=== PATIENT | female | born 1995 | race Caucasian/White ===

== ENCOUNTER 2017-06-01 20:13 | Emergency (ER) | payer BC ==
[2017-06-01 20:41] VITALS: BP 113/59
--- NOTE | 2017-06-01 22:24 | UC ---
Rachel Farooq Alfonso, scribed for Bi Benitez MD on 06/01/17 at 2145 . General HPI - HPI Summary HPI Summary: This patient is a 21 year old F presenting to [facility] accompanied by mother with a chief complaint of tiredness since a month ago. The CC is described as aches and pressure. The symptoms are worse since yesterday. Pt rates the pain 5/10 in severity. Symptoms aggravated and alleviated by nothing. Pt reports racing palpitations (all day yesterday), decreased urinary frequency, loss of appetite , fatigue, difficulty focusing, disorientation, and lower back pain. Pt denies fever, chills, CP, melena, diarrhea, and vaginal discharge. LNMP began 2 days ago. Pt is on IUD. Pt denies abdominal PSHx. Patient medications reviewed this visit. - History of Current Complaint Chief Complaint: UCGU Stated Complaint: FEELING TIRED Time Seen by Provider: 06/01/17 21:34 Hx Obtained From: Patient Onset/Duration: Sudden Onset, Lasting Weeks - one month, Worse Since - yesterday Timing: Constant Onset Severity: Moderate Current Severity: Moderate Pain Intensity: 5 - /10 Character: aches and pressure Aggravating: Nothing Alleviating: Nothing Associated Signs & Symptoms: Positive: Other - Positive racing palpitations ( all day yesterday), decreased urinary frequency, loss of appetite, fatigue, difficulty focusing, disorientation, and lower back pain; negative fever, chills , CP, melena, diarrhea, and vaginal discharge. - Allergy/Home Medications Allergies/Adverse Reactions: Allergies Allergy/AdvReac Type Severity Reaction Status Date / Time Dust Mite Extract Allergy Intermediate Itching Verified 08/14/15 18:39 Kiwi Extract Allergy Intermediate Hives Verified 08/14/15 18:39 Sesame Oil Allergy Intermediate Hives Verified 08/14/15 18:39 Home Medications: Home Medications Acetaminophen [Eq Acetaminophen] 650 mg PO 06/01/17 [History] PMH/Surg Hx/FS Hx/Imm Hx - Surgical History Surgical History: None - Family History Known Family History: Positive: Cardiac Disease, Hypertension, Diabetes, Other - Breast cancer, abd cancer - Social History Alcohol Use: Occasionally Substance Use Type: None Smoking Status (MU): Never Smoked Tobacco Review of Systems Constitutional: Other - Negative fever, chills Cardiovascular: Palpitations - Racing, Other - Negative CP Gastrointestinal: Other - Negative diarrhea, melena. Genitourinary: Frequency - decreased, Other - Negative vaginal discharge. Musculoskeletal: Other: - Positive low back pain Neurological: Other - Positive loss of appetite, tiredness, fatigue, difficulty focusing, and disorientation All Other Systems Reviewed And Are Negative: Yes Physical Exam Triage Information Reviewed: Yes Appearance: Well-Appearing, No Pain Distress Vital Signs: Initial Vital Signs Temp 98.6 F 06/01/17 20:37 Pulse 90 06/01/17 20:37 Resp 18 06/01/17 20:37 BP 113/59 06/01/17 20:37 Pulse Ox 100 06/01/17 20:37 Vital Signs Reviewed: Yes Eyes: Positive: Other: - EOMI VALE ENT: Positive: Normal ENT inspection Neck: Positive: Supple, Nontender Respiratory: Positive: Chest non-tender, Lungs clear, Normal breath sounds Cardiovascular: Positive: RRR Abdomen Description: Positive: Nontender, Soft Bowel Sounds: Positive: Present Musculoskeletal: Positive: Other: - Mild tenderness low back and suprapubic. Neurological: Positive: Alert Psychological: Positive: Age Appropriate Behavior Skin Exam: Normal Diagnostics - EKG Cardiac Rate: NL - BPM 64 Cardiac Rhythm: Sinus: Normal - EKG time: 1 Ectopy: None ST Segment: Normal - No ST elevation Re-Evaluation - Re-Evaluation First Eval Re-Evaluation Time: 22:10 Comment: Discussed lab results with pt and mother. They understand and agree with discharge plan. Course/Dx - Course Course Of Treatment: DISCUSSED RESULTS OF URINE AND EKG. DISCUSSED GETTING AN EVALUATION IN THE EMERGENCY DEPARTMENT. AT THIS TIME ESTEFANY PREFERS TO HAVE SOME BLOOD WORK DONE AND F/U WITH [facility] THIS WEEK. SHE WILL GO TO THE ED IF SHE GETS WORSE. - Differential Dx - Multi-Symptom Provider Diagnoses: PALPITATIONS, LOWER ABDOMINAL PAIN, FATIGUE Discharge - Discharge Plan Condition: Stable Disposition: HOME Patient Education Materials: Palpitations (ED), Abdominal Pain (ED), Fatigue ( ED) Referrals: Lucy James NP [Primary Care Provider] - Additional Instructions: FOLLOW UP WITH YOUR DOCTOR. FOLLOW UP WITH [facility]. YOU HAVE LAB WORK THAT IS PENDING. GO TO THE EMERGENCY DEPARTMENT FOR ANY WORSENING OF YOUR CONDITION OR QUESTIONS OR CONCERNS. The documentation as recorded by the scribe, Caetta,Armando accurately reflects the service I personally performed and the decisions made by me, Bi Benitez MD.
[2017-06-02 12:08] LABS: Hematocrit 39 % (35-47); Mean Corpuscular HGB Conc 33 g/dl (31-36); Mean Corpuscular Hemoglobin 29 pg (27-31); Mean Corpuscular Volume 89 fL (80-97); Red Blood Count 4.44 10^6/ul (4.0-5.4); Red Cell Distribution Width 14 % (10.5-15); White Blood Count 8.6 10^3/ul (3.5-10.8)
[2017-06-02 12:12] LABS: Add Diff/Slide Review? Slide Review Added; Comments Flag Yes
[2017-06-02 12:21] LABS: ALT 12 U/L (7-52); AST 18 U/L (13-39); Albumin 4.9 g/dL (3.2-5.2); Alkaline Phosphatase 40 U/L (34-104); Anion Gap 6 mmol/L (2-11); BUN/Creatinine Ratio 9.8 (8-20); Blood Urea Nitrogen 6 mg/dL (6-24); C Reactive Protein < 1.00 mg/L (< 5.00); CO2 Carbon Dioxide 26 mmol/L (22-32); Calcium 9.6 mg/dL (8.6-10.3); Chloride 102 mmol/L (101-111); EGFR African American 160.8 (>60); Globulin 2.6 g/dL (2-4); Glucose 89 mg/dL (70-100); Potassium 3.5 mmol/L (3.5-5.0); Sodium 134 mmol/L (133-145); Total Protein 7.5 g/dL (6.4-8.9)
[2017-06-02 12:28] LABS: TSH (Thyroid Stimulating Horm) 1.88 mcIU/mL (0.34-5.60)
--- NOTE | 2017-06-02 16:28 | ED ---
Progress - Progress Note Progress Note: Pt labs returned and reviewed Pt with mild elevation of T bili Other labs including ALT, AST, alkp all wnl remainder of CMP wnl No protein in urine isolated lab elevation not concerning. No abd pain on PE documented. RN to call pt recommend f/u with [facility] as instructed If progressive sx or other concerns - go to [place] or ED for further eval. Re-Evaluation - Re-Evaluation First Eval Re-Evaluation Time: 22:10 Comment: Discussed lab results with pt and mother. They understand and agree with discharge plan. Course/Dx - Course Course Of Treatment: DISCUSSED RESULTS OF URINE AND EKG. DISCUSSED GETTING AN EVALUATION IN THE EMERGENCY DEPARTMENT. AT THIS TIME ESTEFANY PREFERS TO HAVE SOME BLOOD WORK DONE AND F/U WITH [facility] THIS WEEK. SHE WILL GO TO THE ED IF SHE GETS WORSE. - Diagnoses Provider Diagnoses: Fatigue
--- NOTE | 2017-06-03 08:11 | ED ---
Progress - Progress Note Progress Note: Pt labs returned and reviewed Pt with mild elevation of T bili Other labs including ALT, AST, alkp all wnl remainder of CMP wnl No protein in urine isolated lab elevation not concerning. No abd pain on PE documented. RN to call pt recommend f/u with [facility] as instructed If progressive sx or other concerns - go to [place] or ED for further eval. 06/03/17 BILIRUBIN ELEVATED. F/U GI OR PCP. Re-Evaluation - Re-Evaluation First Eval Re-Evaluation Time: 22:10 Comment: Discussed lab results with pt and mother. They understand and agree with discharge plan. Course/Dx - Course Course Of Treatment: DISCUSSED RESULTS OF URINE AND EKG. DISCUSSED GETTING AN EVALUATION IN THE EMERGENCY DEPARTMENT. AT THIS TIME ESTEFANY PREFERS TO HAVE SOME BLOOD WORK DONE AND F/U WITH [facility] THIS WEEK. SHE WILL GO TO THE ED IF SHE GETS WORSE. - Diagnoses Provider Diagnoses: Fatigue
== END 2017-06-01 22:48 | disposition home or self-care (01) ==
LOC: UCEAST 20:13
DX: R00.2 Palpitations (principal); R10.30 Lower abdominal pain, unspecified; R53.83 Other fatigue
CPT/HCPCS: 36415; 80053; 81003; 83735; 84443; 84702; 85025; 86140; 93005; 99211; G0463